=== PATIENT | female | born 2000 | race Caucasian/White ===

== ENCOUNTER 2021-12-30 22:51 | Observation (INO) ==
[2021-12-30] MEDS ORDERED: Lidocaine/EPI 1:100k 1% 20 ML VIAL INFILT ONE (23:18)
[2021-12-30] MEDS ORDERED: Lidocaine/EPI 1:100k 1% 50 ML VIAL INFILT ONE (23:30)
[2021-12-30 23:49] LABS: Bacteria,Urine Few per hpf (None-Few); Basophils # 0.1 K/mcL (0.0-0.2); Basophils % 0.7 %; Bilirubin,Urine Negative (Negative); Blood,Urine Negative (Negative); Clarity,Urine Turbid (Clear); Color,Urine Yellow (Yellow); Eosinophils # 0.8 K/mcL (0.0-0.6); Glucose,Urine (UA) Normal (Normal); Hematocrit 38.1 % (35.3-44.9); Immature Granulocytes % 0.3 % (0-4); Ketones,Urine Negative (Negative); Leukocyte Esterase,Urine Moderate (Negative); Lymphocytes # 2.6 K/mcL (0.6-4.6); Lymphocytes % 24.3 %; Mean Corpuscular HGB Conc 31.5 g/dL (31.6-35.5); Mean Platelet Volume 8.9 fL (9.4-12.4); Monocytes # 0.6 K/mcL (0.0-1.3); Monocytes % 5.6 %; Mucus,Urine Few per lpf (None-Few); Neutrophils # 6.6 K/mcL (1.6-8.9); Nitrite,Urine Negative (Negative); PH,Urine 7.5 pH Units (5.0-8.0); Platelet Count 390 K/mcL (140-400); Protein,Urine 30 mg/dL (Neg-Trace); Red Blood Count 4.28 M/mcL (3.82-4.97); Red Cell Distribution Width 13.2 % (11.5-14.5); Segmented Neutrophils % 62.1 %; Specific Gravity,Urine 1.024 (1.010-1.025); Squamous Epithelial Cell,Urine Many per hpf (None-Few); Urobilinogen,Urine Normal (Normal); White Blood Count 10.7 K/mcL (4.3-11.1)
[2021-12-31 00:06] LABS: Acetaminophen < 10 mcg/mL (10-20); Alanine Aminotransferase 14 Units/L (7-52); Albumin 4.1 g/dL (3.5-5.7); Albumin/Globulin Ratio 1.3 (1.1-2.2); Alkaline Phosphatase 74 Units/L (34-104); Aspartate Amino Transferase 10 Units/L (13-39); BUN/Creatinine Ratio 9 (6-26); Bilirubin,Indirect 0.2 mg/dL (0.0-1.0); Bilirubin,Total 0.2 mg/dL (0.3-1.0); Blood Urea Nitrogen 5 mg/dL (6-20); Calcium 9.3 mg/dL (8.6-10.3); Carbon Dioxide 26 mEq/L (23-29); Chloride 104 mEq/L (98-107); Ethanol < 10 mg/dL (Less than 10); Globulin 3.2 g/dL (2.4-3.5); Glucose 96 mg/dL (70-105); Osmolality,Calculated 283 (280-300); Potassium 3.5 mEq/L (3.5-5.1); Salicylate < 2.5 mg/dL (15.0-30.0); Sodium 138 mEq/L (136-145); Total Protein 7.3 g/dL (6.4-8.9); eGFR For African Americans > 60 (> 60); eGFR For Non-African Americans > 60 (> 60)
[2021-12-31 00:09] LABS: Amphetamine Screen,Urine Negative ng/mL (Cutoff=1000); Barbiturate Screen,Urine Negative ng/mL (Cutoff=200); Benzodiazepines Screen,Urine Negative ng/mL (Cutoff=200); Cannabinoid Screen,Urine Positive ng/mL (Cutoff = 50); Cocaine Screen,Urine Negative ng/mL (Cutoff= 300); Opiate Screen,Urine Negative ng/mL (Cutoff=300); Phencyclidine Screen,Urine Negative ng/mL (Cutoff=25)
[2021-12-31 02:40] LABS: Influenza A PCR Negative (Negative); Influenza B PCR Negative (Negative); Resp. Syncytial Virus PCR Negative (Negative)
[2021-12-31 02:41] LABS: SARS-CoV-2 by PCR (In House) Negative (Negative)
[2021-12-31] MEDS ORDERED: *HR* LORazepam 2 MG/ML VIAL IM PRN (03:23)
[2021-12-31] MEDS ORDERED: traZODone 50 MG TABLET PO PRN (03:23)
[2021-12-31] MEDS ORDERED: haloperidoL 5 MG TABLET PO PRN (03:23)
[2021-12-31] MEDS ORDERED: Haloperidol Lactate 5 MG/ML VIAL IM PRN (03:23)
[2021-12-31] MEDS ORDERED: *HR* LORazepam 1 MG TABLET PO PRN (03:23)
[2021-12-31] MEDS ORDERED: Ibuprofen 400 MG TABLET PO PRN (03:23)
[2021-12-31] MEDS ORDERED: hydrOXYzine pamoate 25 MG CAPSULE PO PRN (03:23)
[2021-12-31 12:26] VITALS: BP 114/77; PULSE 61; TEMP 98.3; O2SAT 100
[2021-12-31] MEDS ORDERED: Venlafaxine XR (24 HR) 150 MG CAP.ER.24H PO SCH (12:30)
[2021-12-31] MEDS ORDERED: ARIPiprazole 10 MG TABLET PO SCH (12:30)
[2021-12-31] MEDS ORDERED: ARIPiprazole 5 MG TABLET PO SCH (12:30)
[2021-12-31] MEDS ORDERED: Lithium Carbonate 300 MG CAPSULE PO SCH (15:00)
[2021-12-31] MEDS ORDERED: traZODone 50 MG TABLET PO SCH (21:00)
== END 2021-12-31 13:52 | disposition home or self-care (01) ==
LOC: EMEROOARM 22:51 → 1ANU 12-31 03:13 → INTOOBSV 12-31 03:13 → 1ANU 12-31 03:44
PROVIDERS: ADMIT Psychiatry & Neurology Psychiatry; ATTEND Psychiatry & Neurology Psychiatry

== ENCOUNTER 2022-03-30 13:03 | Inpatient (IN) ==
[2022-03-30 13:57] LABS: Bacteria,Urine Moderate per hpf (None-Few); Bilirubin,Urine Negative (Negative); Blood,Urine Negative (Negative); Clarity,Urine Turbid (Clear); Color,Urine Light-Yellow (Yellow); Glucose,Urine (UA) Normal (Normal); Ketones,Urine Negative (Negative); Leukocyte Esterase,Urine Large (Negative); Mucus,Urine Few per lpf (None-Few); Nitrite,Urine Negative (Negative); PH,Urine 7.5 pH Units (5.0-8.0); Protein,Urine Negative (Neg-Trace); RBC,Urine 0-3 per hpf (0-3); Specific Gravity,Urine 1.011 (1.010-1.025); Squamous Epithelial Cell,Urine Many per hpf (None-Few); Urobilinogen,Urine Normal (Normal); WBC,Urine 50-100 per hpf (0-3)
[2022-03-30 14:09] LABS: Amphetamine Screen,Urine Negative ng/mL (Cutoff=1000); Barbiturate Screen,Urine Negative ng/mL (Cutoff=200); Benzodiazepines Screen,Urine Negative ng/mL (Cutoff=200); Cannabinoid Screen,Urine Positive ng/mL (Cutoff = 50); Cocaine Screen,Urine Negative ng/mL (Cutoff= 300); Opiate Screen,Urine Negative ng/mL (Cutoff=300); Phencyclidine Screen,Urine Negative ng/mL (Cutoff=25)
[2022-03-30 14:09] LABS: Basophils # 0.1 K/mcL (0.0-0.2); Basophils % 0.6 %; Eosinophils # 0.6 K/mcL (0.0-0.6); Eosinophils % 7.2 %; Hematocrit 35.4 % (35.3-44.9); Hemoglobin 11.3 g/dL (11.5-15.4); Immature Granulocytes % 0.3 % (0-4); Lymphocytes # 2.3 K/mcL (0.6-4.6); Lymphocytes % 29.4 %; Mean Corpuscular HGB Conc 31.9 g/dL (31.6-35.5); Mean Corpuscular Hemoglobin 26.9 pg (28.0-33.3); Mean Corpuscular Volume 84.3 fL (83.0-100.0); Mean Platelet Volume 9.2 fL (9.4-12.4); Monocytes # 0.4 K/mcL (0.0-1.3); Monocytes % 5.5 %; Neutrophils # 4.5 K/mcL (1.6-8.9); Platelet Count 408 K/mcL (140-400); Red Cell Distribution Width 14.1 % (11.5-14.5); White Blood Count 7.9 K/mcL (4.3-11.1)
[2022-03-30 14:27] LABS: Acetaminophen < 10 mcg/mL (10-20); BUN/Creatinine Ratio 12 (6-26); Blood Urea Nitrogen 6 mg/dL (6-20); Calcium 9.3 mg/dL (8.6-10.3); Carbon Dioxide 23 mEq/L (23-29); Chloride 107 mEq/L (98-107); Ethanol < 10 mg/dL (Less than 10); Glucose 97 mg/dL (70-105); Osmolality,Calculated 286 (280-300); Potassium 3.6 mEq/L (3.5-5.1); Salicylate < 2.5 mg/dL (15.0-30.0); Sodium 139 mEq/L (136-145); eGFR For African Americans > 60 (> 60); eGFR For Non-African Americans > 60 (> 60)
[2022-03-30] MEDS ORDERED: cephALEXin 500 MG CAPSULE PO ONE (15:43)
[2022-03-30 19:27] LABS: Influenza A PCR Negative (Negative); Influenza B PCR Negative (Negative); Resp. Syncytial Virus PCR Negative (Negative)
[2022-03-30 19:47] LABS: SARS-CoV-2 by PCR (In House) Negative (Negative)
[2022-03-30] MEDS ORDERED: *HR* LORazepam 1 MG TABLET PO PRN (20:09)
[2022-03-30] MEDS ORDERED: haloperidoL 5 MG TABLET PO PRN (20:09)
[2022-03-30] MEDS ORDERED: Haloperidol Lactate 5 MG/ML VIAL IM PRN (20:09)
[2022-03-30] MEDS ORDERED: *HR* LORazepam 2 MG/ML VIAL IM PRN (20:09)
[2022-03-30] MEDS: traZODone 50 MG TABLET PO SCH (21:49)
[2022-03-30] MEDS: QUEtiapine Fumarate 25 MG TABLET PO PRN (21:49)
[2022-03-30] MEDS: Nicotine 2 MG GUM BC PRN (22:19)
[2022-03-31] MEDS: ARIPiprazole 10 MG TABLET PO SCH (08:27)
[2022-03-31] MEDS: Venlafaxine XR (24 HR) 150 MG CAP.ER.24H PO SCH (08:28)
[2022-03-31] MEDS ORDERED: ARIPiprazole 5 MG TABLET PO SCH (09:00)
[2022-03-31] MEDS: Nicotine 2 MG GUM BC PRN ×2 (10:27→18:41)
[2022-03-31] MEDS ORDERED: Albuterol 2.5 MG/3 ML NEBULIZER IH PRN (12:19)
[2022-03-31 13:30] LABS: Estimated Average Glucose 105 mg/dl; Hemoglobin A1C 5.3 %
[2022-03-31 13:39] LABS: Thyroid Stimulating Hormone 1.413 mcIU/mL (0.340-5.600)
[2022-03-31] MEDS: Budesonide/Formoterol 80/4.5 1 PUFF INH IH SCH ×2 (14:57→21:14)
[2022-03-31] MEDS: Fluticasone Propionate Nasal 50 MCG/SPRAY BOTTLE NS SCH (14:57)
[2022-03-31] MEDS: Lithium Carbonate 300 MG CAPSULE PO SCH ×2 (14:58→20:17)
[2022-03-31 15:50] LABS: Bilirubin,Urine Negative (Negative); Blood,Urine Negative (Negative); Clarity,Urine Clear (Clear); Color,Urine Yellow (Yellow); Glucose,Urine (UA) Normal (Normal); Ketones,Urine Negative (Negative); Leukocyte Esterase,Urine Moderate (Negative); Mucus,Urine Few per lpf (None-Few); Nitrite,Urine Negative (Negative); PH,Urine 5.5 pH Units (5.0-8.0); Protein,Urine Trace mg/dL (Neg-Trace); RBC,Urine 0-3 per hpf (0-3); Specific Gravity,Urine > 1.030 (1.010-1.025); Squamous Epithelial Cell,Urine Few per hpf (None-Few); Urobilinogen,Urine Normal (Normal)
[2022-03-31] MEDS: traZODone 50 MG TABLET PO SCH (20:17)
[2022-03-31] MEDS: hydrOXYzine pamoate 25 MG CAPSULE PO PRN (20:19)
[2022-04-01] MEDS: Lithium Carbonate 300 MG CAPSULE PO SCH ×3 (08:45→21:02)
[2022-04-01] MEDS: ARIPiprazole 10 MG TABLET PO SCH (08:46)
[2022-04-01] MEDS: Nicotine 2 MG GUM BC PRN ×3 (08:48→19:46)
[2022-04-01] MEDS: Venlafaxine XR (24 HR) 150 MG CAP.ER.24H PO SCH (08:48)
[2022-04-01] MEDS: Fluticasone Propionate Nasal 50 MCG/SPRAY BOTTLE NS SCH (09:09)
[2022-04-01] MEDS: Budesonide/Formoterol 80/4.5 1 PUFF INH IH SCH ×2 (11:16→21:02)
[2022-04-01] MEDS: hydrOXYzine pamoate 25 MG CAPSULE PO PRN (19:46)
[2022-04-01] MEDS: traZODone 50 MG TABLET PO SCH (21:02)
[2022-04-01] MEDS: Acetaminophen 325 MG TABLET PO PRN (21:03)
[2022-04-02] MEDS: Fluticasone Propionate Nasal 50 MCG/SPRAY BOTTLE NS SCH (08:44)
[2022-04-02] MEDS: Venlafaxine XR (24 HR) 150 MG CAP.ER.24H PO SCH (08:45)
[2022-04-02] MEDS: Budesonide/Formoterol 80/4.5 1 PUFF INH IH SCH ×2 (08:45→21:47)
[2022-04-02] MEDS: Lithium Carbonate 300 MG CAPSULE PO SCH ×3 (08:45→21:46)
[2022-04-02] MEDS: ARIPiprazole 10 MG TABLET PO SCH (08:46)
[2022-04-02] MEDS: Nicotine 2 MG GUM BC PRN ×3 (08:53→18:51)
[2022-04-02] MEDS: hydrOXYzine pamoate 25 MG CAPSULE PO PRN (16:05)
[2022-04-02] MEDS: traZODone 50 MG TABLET PO SCH (21:46)
[2022-04-03] MEDS: ARIPiprazole 10 MG TABLET PO SCH (08:50)
[2022-04-03] MEDS: Venlafaxine XR (24 HR) 150 MG CAP.ER.24H PO SCH (08:52)
[2022-04-03] MEDS: Lithium Carbonate 300 MG CAPSULE PO SCH ×3 (08:52→20:13)
[2022-04-03] MEDS: Fluticasone Propionate Nasal 50 MCG/SPRAY BOTTLE NS SCH (08:53)
[2022-04-03] MEDS: Budesonide/Formoterol 80/4.5 1 PUFF INH IH SCH ×2 (08:53→20:13)
[2022-04-03] MEDS: Nicotine 2 MG GUM BC PRN ×3 (08:54→20:14)
[2022-04-03] MEDS ORDERED: *HR* LORazepam 0.5 MG TABLET PO ONE (14:39)
[2022-04-03] MEDS: hydrOXYzine pamoate 25 MG CAPSULE PO PRN (18:00)
[2022-04-03] MEDS: traZODone 50 MG TABLET PO SCH (20:13)
[2022-04-03] MEDS: QUEtiapine Fumarate 25 MG TABLET PO PRN (20:14)
[2022-04-04] MEDS: ARIPiprazole 10 MG TABLET PO SCH (08:48)
[2022-04-04] MEDS: Lithium Carbonate 300 MG CAPSULE PO SCH ×3 (08:48→21:14)
[2022-04-04] MEDS: Venlafaxine XR (24 HR) 150 MG CAP.ER.24H PO SCH (08:48)
[2022-04-04] MEDS: Fluticasone Propionate Nasal 50 MCG/SPRAY BOTTLE NS SCH (09:25)
[2022-04-04] MEDS: Budesonide/Formoterol 80/4.5 1 PUFF INH IH SCH ×2 (09:25→21:17)
[2022-04-04] MEDS: Nicotine 2 MG GUM BC PRN ×5 (09:27→21:15)
[2022-04-04] MEDS: hydrOXYzine pamoate 25 MG CAPSULE PO PRN (21:14)
[2022-04-04] MEDS: QUEtiapine Fumarate 25 MG TABLET PO PRN (21:14)
[2022-04-04] MEDS: Acetaminophen 325 MG TABLET PO PRN (21:15)
[2022-04-04] MEDS: traZODone 50 MG TABLET PO SCH (21:15)
[2022-04-05] MEDS: Fluticasone Propionate Nasal 50 MCG/SPRAY BOTTLE NS SCH (08:03)
[2022-04-05] MEDS: Lithium Carbonate 300 MG CAPSULE PO SCH ×3 (08:03→21:12)
[2022-04-05] MEDS: Venlafaxine XR (24 HR) 150 MG CAP.ER.24H PO SCH (08:03)
[2022-04-05] MEDS: Acetaminophen 325 MG TABLET PO PRN (08:04)
[2022-04-05] MEDS: Budesonide/Formoterol 80/4.5 1 PUFF INH IH SCH ×2 (08:04→21:43)
[2022-04-05] MEDS: ARIPiprazole 10 MG TABLET PO SCH (08:04)
[2022-04-05] MEDS: Nicotine 2 MG GUM BC PRN ×5 (08:49→21:16)
[2022-04-05] MEDS: hydrOXYzine pamoate 25 MG CAPSULE PO PRN (21:12)
[2022-04-05] MEDS: traZODone 50 MG TABLET PO SCH (21:12)
[2022-04-05] MEDS: QUEtiapine Fumarate 25 MG TABLET PO PRN (21:13)
[2022-04-06] MEDS: Fluticasone Propionate Nasal 50 MCG/SPRAY BOTTLE NS SCH (08:41)
[2022-04-06] MEDS: hydrOXYzine pamoate 25 MG CAPSULE PO SCH ×2 (08:42→20:39)
[2022-04-06] MEDS: Lithium Carbonate 300 MG CAPSULE PO SCH ×3 (08:42→20:38)
[2022-04-06] MEDS: ARIPiprazole 10 MG TABLET PO SCH (08:43)
[2022-04-06] MEDS: Venlafaxine XR (24 HR) 150 MG CAP.ER.24H PO SCH (08:44)
[2022-04-06] MEDS: Nicotine 2 MG GUM BC PRN ×5 (08:46→20:39)
[2022-04-06] MEDS: Budesonide/Formoterol 80/4.5 1 PUFF INH IH SCH ×2 (09:50→20:41)
[2022-04-06] MEDS: hydrOXYzine pamoate 25 MG CAPSULE PO PRN (14:42)
[2022-04-06] MEDS: traZODone 50 MG TABLET PO SCH (20:39)
[2022-04-06] MEDS: QUEtiapine Fumarate 25 MG TABLET PO PRN (20:41)
[2022-04-07] MEDS: Acetaminophen 325 MG TABLET PO PRN (09:20)
[2022-04-07] MEDS: hydrOXYzine pamoate 25 MG CAPSULE PO SCH (09:20)
[2022-04-07] MEDS: ARIPiprazole 10 MG TABLET PO SCH (09:21)
[2022-04-07] MEDS: Nicotine 2 MG GUM BC PRN ×2 (09:22→12:26)
[2022-04-07] MEDS: Venlafaxine XR (24 HR) 150 MG CAP.ER.24H PO SCH (09:22)
[2022-04-07] MEDS: Lithium Carbonate 300 MG CAPSULE PO SCH (09:22)
[2022-04-07] MEDS: Fluticasone Propionate Nasal 50 MCG/SPRAY BOTTLE NS SCH (09:23)
[2022-04-07] MEDS: Budesonide/Formoterol 80/4.5 1 PUFF INH IH SCH (09:23)
[2022-04-07 09:42] VITALS: BP 126/85; PULSE 84; TEMP 97.6; O2SAT 96
[2022-04-07] MEDS ORDERED: Moderna Covid-19 Vaccine 100MCG/0.5mL IM ONE ×2 (10:16→11:23)
[2022-04-07] MEDS: hydrOXYzine pamoate 25 MG CAPSULE PO PRN (13:09)
== END 2022-04-07 13:57 | disposition home or self-care (01) | DRG 885 ==
LOC: EMEROOARM 13:03 → 1ANU 20:07
PROVIDERS: ADMIT Psychiatry & Neurology Psychiatry; ATTEND Psychiatry & Neurology Psychiatry